=== PATIENT | male | born 1950 | race Caucasian/White ===

== ENCOUNTER 2019-11-06 16:01 | Outpatient (CLI) | payer OTHER ==
[~2019-11-06 16:01] MED LIST: NABUMETONE500 MG PO; PERCOCET 5/3251 TAB PO
== END 2019-11-06 16:09 | disposition home or self-care (01) ==
LOC: LAB 16:01
DX: R97.20 Elevated prostate specific antigen [PSA] (principal); B96.29 Other Escherichia coli [E. coli] as the cause of diseases classified elsewhere

== ENCOUNTER 2019-11-14 07:26 | Outpatient (CLI) | payer OTHER | END 2019-11-14 08:30 | disposition home or self-care (01) | LOC: SONOGRAMA 07:26 | DX: D29.1 Benign neoplasm of prostate (principal); R97.20 Elevated prostate specific antigen [PSA] ==